=== PATIENT | female | born 1945 | race Caucasian/White ===

== ENCOUNTER 2016-12-01 08:23 | Day surgery (SDC) | payer MEDICARE, OTHER ==
--- NOTE | ~2016-12-01 | EGD ---
EGD REPORT [facility] [address] [address] NAME: SONI SMITH : [birth year] STATUS : REG [facility] PAT#: [id number] AGE: 71 ADM/REG DATE : 12/01/16 MR#: [id number] REPORT SERV DATE: 12/01/16 DICTATED BY: TROY PULIDO DATE: 12/01/16 REPORT STATUS : Draft TRANSCRIBED BY: [facility] DATE: 12/01/16 Endoscopy Center Patient Name: Soni Smith Date of : 1945 Attending MD: TROY PULIDO MD Procedure Date No Time: 12/01/2016 Procedure: Upper GI endoscopy Indications: Dysphagia, Heartburn, Suspected esophageal reflux Referring MD: JANETTE TORRES Medicines: as per anesthesia Complications: No immediate complications. Procedure: Pre-Anesthesia Assessment: - ASA Grade Assessment: II - A patient with mild systemic disease. After obtaining informed consent, the endoscope was passed under direct vision. Throughout the procedure, the patient's blood pressure, pulse, and oxygen saturations were monitored continuously. The GIF H190 [id number] was introduced through the mouth, and advanced to the third part of duodenum. The upper GI endoscopy was accomplished without difficulty. The patient tolerated the procedure. Findings: The examined esophagus was normal. Localized mild inflammation characterized by erythema was found in the gastric antrum. Biopsies were taken with a cold forceps for histology. The cardia and gastric fundus were normal on retroflexion. The examined duodenum was normal. Impression: - Normal esophagus. - Gastritis. Biopsied. - Normal examined duodenum. Recommendation: - Await pathology results. - Follow an antireflux regimen. - Continue present medications. Procedure Code(s): --- Professional --- 28105, Esophagogastroduodenoscopy, flexible, transoral; with biopsy, single or multiple Diagnosis Code(s): --- Professional --- K29.70, Gastritis, unspecified, without bleeding R13.10, Dysphagia, unspecified EGD REPORT [facility] [address] [place] [address] NAME: SONI SMITH : [birth year] STATUS : REG [facility] PAT#: [id number] AGE: 71 ADM/REG DATE : 12/01/16 MR#: [id number] REPORT SERV DATE: 12/01/16 DICTATED BY: TROY PULIDO. DATE: 12/01/16 REPORT STATUS : Draft TRANSCRIBED BY: [employer] DATE: 12/01/16 R12, Heartburn CPT copyright 2013 [employer]. All rights reserved. The codes documented in this report are preliminary and upon team truck driver review may be revised to meet current compliance requirements. TROY PULIDO MD 12/01/2016 10:43 AM This report has been signed electronically. Number of Addenda: 0 Note Initiated On: 12/01/2016 10:25 AM Scope Withdrawal Time 0 hours 0 minutes 0 seconds [address] [place] [address]
--- NOTE | ~2016-12-01 | EGD ---
EGD REPORT [facility] [address] [address] NAME: SONI SMITH : [birth year] STATUS : REG [facility] PAT#: [id number] AGE: 71 ADM/REG DATE : 12/01/16 MR#: [id number] REPORT SERV DATE: 12/01/16 DICTATED BY: TROY PULIDO DATE: 12/01/16 REPORT STATUS : Draft TRANSCRIBED BY: [employer] DATE: 12/01/16 Endoscopy Center Patient Name: Soni Smith Date of : 1945 Attending MD: TROY PULIDO MD Procedure Date No Time: 12/01/2016 Procedure: Colonoscopy Indications: High risk colon cancer surveillance: Personal history of colonic polyps, FH of Colon Cancer - 1st degree relative Referring MD: JANETTE TORRES Medicines: as per anesthesia Complications: No immediate complications. Procedure: Pre-Anesthesia Assessment: - ASA Grade Assessment: II - A patient with mild systemic disease. After I obtained informed consent, the scope was passed under direct vision. Throughout the procedure, the patient's blood pressure, pulse, and oxygen saturations were monitored continuously. The PCF [id number] was introduced through the anus and advanced to the cecum, identified by appendiceal orifice and ileocecal valve. The colonoscopy was somewhat difficult due to multiple diverticula in the colon, significant looping and a tortuous colon. The patient tolerated the procedure. The quality of the bowel preparation was adequate to identify polyps. Findings: The perianal and digital rectal examinations were normal. Many small and large-mouthed diverticula were found in the sigmoid colon and in the descending colon. Internal hemorrhoids were found during endoscopy and were mild. Impression: - Diverticulosis in the sigmoid colon and in the descending colon. - Internal hemorrhoids. Recommendation: - Repeat colonoscopy in 5 years for surveillance. Procedure Code(s): --- Professional --- 28831, Colonoscopy, flexible, proximal to splenic flexure; diagnostic, with or without collection of specimen(s) by brushing or washing, with or without colon decompression (separate procedure) EGD REPORT [facility] [address] [place]. [address] NAME: SONI SMITH : [birth year] STATUS : REG [facility]#: [id number] AGE: 71 ADM/REG DATE : 12/01/16 MR#: [id number] REPORT SERV DATE: 12/01/16 DICTATED BY: TROY PULIDO DATE: 12/01/16 REPORT STATUS : Draft TRANSCRIBED BY: [employer] DATE: 12/01/16 Diagnosis Code(s): --- Professional --- K64.8, Other hemorrhoids K57.30, Diverticulosis of large intestine without perforation or abscess without bleeding Z86.010, Personal history of colonic polyps Z80.0, Family history of malignant neoplasm of digestive organs CPT copyright 2013 [employer]. All rights reserved. The codes documented in this report are preliminary and upon braille coder review may be revised to meet current compliance requirements. TROY PULIDO MD 12/01/2016 11:08 AM This report has been signed electronically. Number of Addenda: 0 Note Initiated On: 12/01/2016 10:22 AM Scope Withdrawal Time 0 hours 6 minutes [address] [place] [address]
[~2016-12-01 08:23] MED LIST: ASA5GR PO; ASAB PO; AT10 PO; ATEN25 PO; ATV.5 PO; BEN25 PO; BENTYL10 PO; CALTRA600D PO; COREG3 PO; COREG6 PO; CRESTOR40 MG PO; DETROL1 PO; ENTERAGAM PO; ESTRACE1 MG PO; FISH-EPA1000 MG PO; FLONASE NAS; FORTEO SC; LIOR10 PO; LIPITOR40 PO; LORTAB10 PO; METHENAM HIP1 GM OR; MOBIC15 MG PO; MULTIPLE VIT PO; MYRBETRIQ50 MG PO; NEUR100 PO; OS500+D PO; OXYCON20 PO; OXYIR5 MG PO; P125 PO; PEPCID40 MG PO; PLAVIX PO; PR25 PO; PREM625 PO; PRILO PO; PROBIOTIC PO; PROTONIX PO; SINGULAIR1 PO; STRESS TAB PO; STRESS600T PO; STRESSTAB2 PO; SUCR PO; SUPER B-C PO; ULTRAM50 PO; VITAMIN C100 MG PO; VITAMIN D31000 UNIT PO; VITC500 PO; ZOL100 PO; [UNRECOGNIZED DRUG - OTHER] PO
== END 2016-12-01 23:59 | disposition home or self-care (01) ==
LOC: DMU 08:23
PROVIDERS: Internal Medicine Gastroenterology
PROC: 0DJD8ZZ Inspection of Lower Intestinal Tract, Via Natural or Artificial Opening Endoscopic (ICD-10-PCS; principal; 2016-12-01 10:00)
PROC: 0DB68ZX Excision of Stomach, Via Natural or Artificial Opening Endoscopic, Diagnostic (ICD-10-PCS; 2016-12-01 10:00)
DX: K64.8 Other hemorrhoids (principal); K57.30 Diverticulosis of large intestine without perforation or abscess without bleeding; K21.9 Gastro-esophageal reflux disease without esophagitis; I25.10 Atherosclerotic heart disease of native coronary artery without angina pectoris; F17.200 Nicotine dependence, unspecified, uncomplicated; F41.9 Anxiety disorder, unspecified; Z88.5 Allergy status to narcotic agent; Z88.8 Allergy status to other drugs, medicaments and biological substances; Z90.49 Acquired absence of other specified parts of digestive tract; Z86.010 Personal history of colon polyps; Z80.0 Family history of malignant neoplasm of digestive organs
CPT/HCPCS: 88305